=== PATIENT | female | born 1970 | race African-American/Black ===

== ENCOUNTER 2017-02-21 16:40 | Emergency (ER) | payer MEDICARE, MEDICAID ==
[~2017-02-21] VITALS: Ht 175.3 cm; Wt 165.6 kg
[~2017-02-21 16:40] MED LIST: ALBUAER3 IN; ALPR0.5T PO; ASPI-231 PO; CARI-277 PO; FURO20TA PO; GLIP-115 PO; LEVA1NEB5 IN; POT20T PO
[2017-02-21 18:04] LABS: Basophils # (auto) 0 uL; Basophils % (auto) 0.5 % (0.0-2.0); DEFINITIVE VIEW TRANSMISSION; Eosinophils # (auto) 0.1 uL; Eosinophils % (auto) 1.5 % (0.0-7.0); Hematocrit 41.2 % (36.0-46.0); Hemoglobin 13.3 g/dL (12.2-16.2); Lymphocytes # (auto) 2.6 uL; Lymphocytes % (auto) 29.9 % (10.0-50.0); Mean Corpuscular Hemoglobin 24.8 pg (28.0-32.0); Mean Corpuscular Hgb Conc. 32.4 g/dL (32.0-36.0); Mean Corpuscular Volume 76.4 fL (80.0-100.0); Mean Platelet Volume 9.3 fL (7.4-10.4); Monocytes # (auto) 0.7 uL; Monocytes % (auto) 8.4 % (0.0-12.0); Neutrophils # (auto) 5.2 uL; Neutrophils % (auto) 59.7 % (37.0-80.0); Platelet Count (auto) 369 10^3/uL (140-450); White Blood Cell 8.8 10^3/uL (4.4-10.8)
[2017-02-21 18:12] LABS: Albumin 3.2 g/dL (3.4-5.0); Alkaline Phosphatase 77 U/L (45-117); Anion Gap 7 (5-15); Aspartate Aminotransferase 19 U/L (15-37); BUN/Creatinine Ratio 20.5; Bilirubin, Total 0.5 mg/dL (0.2-1.0); Blood Urea Nitrogen 15 mg/dL (7-18); Calcium 7.9 mg/dL (8.5-10.1); Carbon Dioxide 27 mmol/L (21-32); Chloride 104 mmol/L (98-107); GFR African American 111 mL/min; GFR Non-African American 92 mL/min; Glucose 243 mg/dL (74-106); Magnesium 2.1 mg/dL (1.6-2.6); Potassium 3.6 mmol/L (3.5-5.1); Sodium 138 mmol/L (136-145); Total Protein 7.4 g/dL (6.4-8.2)
[2017-02-22 02:08] LABS: INR 1.03 (0.9-1.15); Partial Thromboplastin Time 26.6 sec (22.64-33.71); Prothrombin Time 11.2 sec (9.37-12.3)
[2017-02-22 02:17] VITALS: BP 126/55
[2017-02-22 02:24] LABS: B-Type Natriuretic Peptide < 5.0 pg/mL (0-100); Temperature: 21.8 C (20.0-25.0)
== END 2017-02-22 04:18 | disposition home or self-care (01) ==
LOC: ER 16:40 → EDBD 16:40 → ER 02-22 04:00
DX: R00.2 Palpitations (principal); E11.9 Type 2 diabetes mellitus without complications; I11.0 Hypertensive heart disease with heart failure; I50.9 Heart failure, unspecified; E66.01 Morbid (severe) obesity due to excess calories; Z68.43 Body mass index [BMI] 50.0-59.9, adult; J45.909 Unspecified asthma, uncomplicated; J44.9 Chronic obstructive pulmonary disease, unspecified; E78.5 Hyperlipidemia, unspecified; F17.210 Nicotine dependence, cigarettes, uncomplicated; E83.51 Hypocalcemia; Z88.6 Allergy status to analgesic agent; Z88.8 Allergy status to other drugs, medicaments and biological substances; Z79.82 Long term (current) use of aspirin; Z79.899 Other long term (current) drug therapy
CPT/HCPCS: 36415; 71010; 71020; 80053; 82962; 83735; 83880; 84443; 84484; 85025; 85379; 85610; 85730; 93005

== ENCOUNTER 2019-06-17 23:37 | Emergency (ER) | payer MEDICARE, OTHER ==
[~2019-06-17] VITALS: Ht 177.8 cm; Wt 167.8 kg
[~2019-06-17 23:37] MED LIST changes: +FURO1TAB33 PO; -FURO20TA PO; -GLIP-115 PO; +GLIP5TAB12 PO
[2019-06-18 00:51] LABS: Basophils # (auto) 0.1 uL; Basophils % (auto) 0.9 % (0.0-2.0); Eosinophils # (auto) 0.2 uL; Eosinophils % (auto) 3.1 % (0.0-7.0); Hemoglobin 13.3 g/dL (12.2-16.2); Lymphocytes % (auto) 39.7 % (10.0-50.0); Mean Corpuscular Hemoglobin 25.1 pg (28.0-32.0); Mean Corpuscular Hgb Conc. 32.3 g/dL (32.0-36.0); Mean Corpuscular Volume 77.7 fL (80.0-100.0); Monocytes # (auto) 0.7 uL; Monocytes % (auto) 9.4 % (0.0-12.0); Neutrophils # (auto) 3.6 uL; Neutrophils % (auto) 46.9 % (37.0-80.0); Nucleated Red Blood Cells % 0.1 %; Platelet Count (auto) 293 10^3/uL (140-450); Red Blood Cells 5.27 10^6/uL (4.0-5.20); Red Cell Distribution Width 17.4 % (11.8-14.3); White Blood Cell 7.6 10^3/uL (4.4-10.8)
[2019-06-18 01:05] LABS: Albumin 3.5 g/dL (3.4-5.0); Anion Gap 5 (5-15); Blood Urea Nitrogen 18 mg/dL (7-18); Calcium 8.9 mg/dL (8.5-10.1); Carbon Dioxide 27 mmol/L (21-32); Chloride 106 mmol/L (98-107); Glucose 141 mg/dL (74-106); Magnesium 2.2 mg/dL (1.6-2.6); Potassium 3.9 mmol/L (3.5-5.1); Sodium 138 mmol/L (136-145)
[2019-06-18 01:06] LABS: INR 1.01 (0.9-1.15); Partial Thromboplastin Time 29.6 sec (23.64-32.05)
[2019-06-18 01:07] LABS: Alanine Aminotransferase 20 U/L (13-56); Aspartate Aminotransferase 20 U/L (15-37); BUN/Creatinine Ratio 26.1; GFR African American 117 mL/min; GFR Non-African American 97 mL/min
[2019-06-18 01:13] LABS: Urine Bacteria FEW /hpf (None Seen); Urine Blood Negative /uL (Negative); Urine Mucus FEW (None Seen); Urine Specific Gravity 1.031 (1.001-1.035); Urine WBC 9 /hpf (0 - 5)
[2019-06-18 01:18] LABS: Alkaline Phosphatase 60 U/L (45-117); Bilirubin, Total 0.4 mg/dL (0.2-1.0); Total Protein 7.6 g/dL (6.4-8.2)
[2019-06-18] MEDS ORDERED: IPRATROPIUM BROM 0.5 MG/2.5ML INH SOL NEB ONE (03:30)
[2019-06-18] MEDS ORDERED: methylPREDNISolone SOD SUCC 125 MG/2 ML VL IV ONE (03:30)
[2019-06-18] MEDS ORDERED: ALBUTEROL SULF 2.5 MG/0.5ML(0.5%) NEB SOLN NEB ONE (03:30)
[2019-06-18] MEDS ORDERED: SODIUM CHLORIDE 0.9% 1,000 ML IV ONE (03:30)
[2019-06-18 05:04] VITALS: BP 106/37
== END 2019-06-18 05:55 | disposition home or self-care (01) ==
LOC: EDBD 23:37 → ER 23:43
DX: J44.9 Chronic obstructive pulmonary disease, unspecified (principal); I11.0 Hypertensive heart disease with heart failure; I50.9 Heart failure, unspecified; E78.5 Hyperlipidemia, unspecified; E11.9 Type 2 diabetes mellitus without complications; F17.210 Nicotine dependence, cigarettes, uncomplicated
CPT/HCPCS: 36415; 80053; 81001; 83735; 83880; 84484; 84702; 85025; 85610; 85730; 93005; 96374; 99284; J2930; J7030; J7611; J7644

== ENCOUNTER 2019-07-08 04:47 | Inpatient (IN) | payer MEDICARE, OTHER ==
[~2019-07-08] VITALS: Ht 175.3 cm; Wt 157.2 kg
[2019-07-08 05:52] LABS: Basophils # (auto) 0.1 uL; Basophils % (auto) 0.8 % (0.0-2.0); Eosinophils # (auto) 0.3 uL; Eosinophils % (auto) 4.2 % (0.0-7.0); Hematocrit 40.3 % (36.0-46.0); Lymphocytes # (auto) 2.3 uL; Mean Corpuscular Hemoglobin 25.4 pg (28.0-32.0); Mean Corpuscular Hgb Conc. 32.2 g/dL (32.0-36.0); Mean Corpuscular Volume 78.8 fL (80.0-100.0); Monocytes # (auto) 0.6 uL; Monocytes % (auto) 7.6 % (0.0-12.0); Neutrophils # (auto) 4.9 uL; Neutrophils % (auto) 59.4 % (37.0-80.0); Platelet Count (auto) 259 10^3/uL (140-450); Red Blood Cells 5.12 10^6/uL (4.0-5.20); Red Cell Distribution Width 17.1 % (11.8-14.3); White Blood Cell 8.2 10^3/uL (4.4-10.8)
[2019-07-08] MEDS ORDERED: ALBUTEROL SULF 2.5 MG/0.5ML(0.5%) NEB SOLN NEB ONE (06:00)
[2019-07-08] MEDS ORDERED: IPRATROPIUM BROM 0.5 MG/2.5ML INH SOL NEB ONE (06:00)
[2019-07-08 06:10] LABS: Alanine Aminotransferase 21 U/L (13-56); Albumin 3.3 g/dL (3.4-5.0); Anion Gap 5 (5-15); Aspartate Aminotransferase 17 U/L (15-37); BUN/Creatinine Ratio 16.2; Blood Urea Nitrogen 11 mg/dL (7-18); Calcium 8.3 mg/dL (8.5-10.1); Carbon Dioxide 31 mmol/L (21-32); Chloride 105 mmol/L (98-107); GFR African American 119 mL/min; GFR Non-African American 98 mL/min; Glucose 176 mg/dL (74-106); Sodium 141 mmol/L (136-145)
[2019-07-08 06:15] LABS: Alkaline Phosphatase 54 U/L (45-117); Bilirubin, Total 0.5 mg/dL (0.2-1.0); Total Protein 7.3 g/dL (6.4-8.2)
[2019-07-08] MEDS ORDERED: methylPREDNISolone SOD SUCC 125 MG/2 ML VL IV ONE (07:15)
[2019-07-08] MEDS ORDERED: DEXTROSE (50%) 50ML SYRG IV PRN (09:00)
[2019-07-08] MEDS ORDERED: MORPHINE SULF INJ 2 MG/ML SYRINGE 1ML IV PRN (09:00)
[2019-07-08 10:03] LABS: Cholesterol 175 mg/dL (< 200); Triglycerides 119 mg/dL (< 150)
[2019-07-08 10:05] LABS: HDL Cholesterol 30 mg/dL (40-59); LDL Cholesterol 140 mg/dL (< 100)
[2019-07-08] MEDS: PANTOPRAZOLE 40 MG TAB PO SCH (10:25)
[2019-07-08] MEDS: FUROSEMIDE 20 MG TAB PO SCH (10:25)
[2019-07-08] MEDS: BUDESONIDE (INHALATION) 0.5 MG/2 ML NEB NEB SCH ×2 (10:45→22:03)
[2019-07-08] MEDS: ALBUTEROL SULF 2.5 MG/0.5ML(0.5%) NEB SOLN NEB SCH ×4 (10:45→22:03)
[2019-07-08] MEDS: IPRATROPIUM BROM 0.5 MG/2.5ML INH SOL NEB SCH ×4 (10:45→22:03)
[2019-07-08] MEDS: ACCU-CHEK COMFORT CURVE STRIP VI SCH ×3 (11:30→22:00)
--- NOTE | 2019-07-08 12:20 | NUR ---
MS admit from ER [facility] RAND[facility]WA admitted to tele/MS. Patient oriented to UNIQUE MCCARTY RN primary RN, unit, room, bed, and unit policies regarding patient care and visiting hours. Patient weighed by bedscale and encouraged to call if they need something with call light within reach. Bed in low/locked position, be rails up x2. All questions and concerns addressed, patient verbalized understanding.
[2019-07-08 13:10] VITALS: BP 125/81
[2019-07-08] MEDS: methylPREDNISolone SOD SUCC 125 MG/2 ML VL IV SCH ×2 (15:16→22:32)
[2019-07-08] MEDS: InsuLIN REG 1unit/0.01ml Soln (100units/ml) SC SCH ×3 (15:17→22:00)
[2019-07-08 16:29] VITALS: BP 125/81
[2019-07-08 17:00] VITALS: BP 129/57
--- NOTE | 2019-07-08 19:15 | NUR ---
Opening Shift Note Assumed care of patient, awake and alert. No S/S of distress/SOB. Patient reported Headache dull, nonradiating, 04/03. Instructed on POC and to call for assist PRN, will continue to monitor for changes Q1hr and PRN. Will medicate per protocol. bed in low position and call light within reach
[2019-07-08 20:00] VITALS: BP 123/63
--- NOTE | 2019-07-08 20:05 | NUR ---
RECEIVED CALL BACK FROM HOSPITALIST. INFORMED HOSPITALIST PATIENT HAS 7/10 HEADACHE PAIN THAT BEGAN AN HOUR AGO, PAIN IS DULL, NONRADIATING. PATIENT IS REQUESTING TYLENOL. NEW ORDERS RECEIVED TYLENOL PO 500MG Q 6HRS/PRN FOR MILD PAIN. ULTRAM 50MG Q 6HRS /PRN FOR MODERATE PAIN. NEW ORDER FOR CPAP INITIATION, PER MD" RT IS TO ADJUST SETTINGS'
[2019-07-08] MEDS ORDERED: traMADol HCL 50 MG TAB PO PRN (21:15)
[2019-07-08 22:00] VITALS: BP 123/63
--- NOTE | 2019-07-08 22:03 | NUR ---
Respiratory note: PT SEEN FOR CPAP ORDER. PT STATED THAT SHE HAS ONE AT HOME BUT SHE DOESN'T HAVE A CERTAIN CONNECTION TO USE 02 WITH IT AND DOES NOT WEAR IT. SHE ALSO STATED SHE HAS WORN IT A FEW TIMES IN PAST HOSPITAL VISITS AND SHE DID NOT LIKE HOW IT FELT. PT SAID SHE DID NOT WANT TO TRY IT TONIGHT BECAUSE SHE FEELS LIKE SHE MIGHT NOT GET ANY SLEEP WITH IT ON. SHE SAID THAT SHE MIGHT TRY IT THE NEXT NIGHT. CPAP TAKEN OUT OF THE ROOM AT THIS TIME. WILL FOLLOW UP WITH DAY SHIFT RT.
[2019-07-08] MEDS: ACETAMINOPHEN 500 MG TAB PO PRN (22:35)
--- NOTE | 2019-07-09 02:00 | NUR ---
IV insertion IV access obtained, via clean sterile technique by inserting 22 gauge catheter at left ac after 1 attempt. IV secured properly. No trauma to site. Patient tolerated well.
--- NOTE | 2019-07-09 02:00 | NUR ---
IV removal [employer] Technician called that patient removed IV. Upon arrival to room patient IV was removed by patient per patient "it just fell out." area assessed no bleeding applied gauze. catheter intact.
[2019-07-09] MEDS: IPRATROPIUM BROM 0.5 MG/2.5ML INH SOL NEB SCH ×6 (02:11→22:47)
[2019-07-09] MEDS: ALBUTEROL SULF 2.5 MG/0.5ML(0.5%) NEB SOLN NEB SCH ×6 (02:11→22:47)
[2019-07-09] MEDS: methylPREDNISolone SOD SUCC 125 MG/2 ML VL IV SCH ×3 (05:31→21:40)
[2019-07-09 05:44] VITALS: BP 115/60
[2019-07-09] MEDS: glipiZIDE 5 MG TAB PO SCH (06:31)
[2019-07-09] MEDS: ACCU-CHEK COMFORT CURVE STRIP VI SCH ×4 (06:31→21:36)
[2019-07-09] MEDS: InsuLIN REG 1unit/0.01ml Soln (100units/ml) SC SCH ×4 (06:31→21:37)
[2019-07-09] MEDS: ACETAMINOPHEN 500 MG TAB PO PRN ×3 (06:36→20:38)
--- NOTE | 2019-07-09 07:23 | NUR ---
report given to naldo gibbons
--- NOTE | 2019-07-09 08:00 | NUR ---
Opening Shift Note Assumed care of patient. Patient is aroused to voice and orientated to person, place, time and is alert. No S/S of distress/SOB or pain. Instructed on plan of care and to call for assist PRN, will continue to monitor for changes Q1hr and PRN. Addendum: 07/09/19 at 1428 by YESENIA WINSTON RN RN IV Patient has left AC 22gauge peripheral IV saline locked.
[2019-07-09 09:00] VITALS: BP 125/65
[2019-07-09] MEDS: FUROSEMIDE 20 MG TAB PO SCH (09:38)
[2019-07-09] MEDS: PANTOPRAZOLE 40 MG TAB PO SCH (09:38)
[2019-07-09] MEDS ORDERED: POTASSIUM CHL 20 Meq TABLET PO ONE (10:45)
[2019-07-09] MEDS: BUDESONIDE (INHALATION) 0.5 MG/2 ML NEB NEB SCH ×2 (11:08→22:47)
[2019-07-09 13:00] VITALS: BP 137/76
[2019-07-09 17:00] VITALS: BP 124/62
--- NOTE | 2019-07-09 19:10 | NUR ---
Opening Shift Note Assumed care of patient, awake and alert. No S/S of distress/SOB or pain. Instructed on POC and to call for assist PRN, will continue to monitor for changes Q1hr and PRN.
[2019-07-09 20:00] VITALS: BP 113/65
[2019-07-09 22:00] VITALS: BP 113/65
[2019-07-09] MEDS ORDERED: ATORVASTATIN 20 MG TAB PO SCH (22:00)
--- NOTE | 2019-07-10 00:40 | NUR ---
per patient" I have a headache i think my blood sugar is high, can you check my blood sugar" Patient verbalized no other symptoms. Headache 7/, pressure, and nonradiating that began an hour ago. Educated patient on side effects of hypergylcemia. patient verbalized understanding and request blood sugar to be checked. BS 222. will medicate per MD orders.
[2019-07-10] MEDS: ACETAMINOPHEN 500 MG TAB PO PRN (03:01)
[2019-07-10] MEDS: IPRATROPIUM BROM 0.5 MG/2.5ML INH SOL NEB SCH ×3 (03:32→09:58)
[2019-07-10] MEDS: ALBUTEROL SULF 2.5 MG/0.5ML(0.5%) NEB SOLN NEB SCH ×3 (03:32→09:58)
[2019-07-10 05:00] VITALS: BP 117/40
[2019-07-10] MEDS: methylPREDNISolone SOD SUCC 125 MG/2 ML VL IV SCH (06:00)
[2019-07-10] MEDS: InsuLIN REG 1unit/0.01ml Soln (100units/ml) SC SCH ×2 (06:31→11:30)
[2019-07-10] MEDS: ACCU-CHEK COMFORT CURVE STRIP VI SCH ×2 (06:31→11:59)
[2019-07-10] MEDS: glipiZIDE 5 MG TAB PO SCH (06:31)
[2019-07-10] MEDS: BUDESONIDE (INHALATION) 0.5 MG/2 ML NEB NEB SCH (06:41)
--- NOTE | 2019-07-10 07:18 | NUR ---
Report given to naldo gibbons
[2019-07-10 09:00] VITALS: BP 126/65
[2019-07-10] MEDS: FUROSEMIDE 20 MG TAB PO SCH (09:31)
[2019-07-10] MEDS: PANTOPRAZOLE 40 MG TAB PO SCH (09:32)
[2019-07-10] MEDS ORDERED: POTASSIUM CHL 20 Meq TABLET PO SCH (10:00)
[2019-07-10 10:45] VITALS: BP 126/65
== END 2019-07-10 12:25 | disposition home or self-care (01) | DRG 189 ==
LOC: ER 04:47 → EDBD 04:47 → OVERFLOW 04:48 → CENTRAL 12:22
PROVIDERS: ADMIT Nurse Practitioner Acute Care; ATTEND Family Medicine
DX: J96.20 Acute and chronic respiratory failure, unspecified whether with hypoxia or hypercapnia (principal); I50.32 Chronic diastolic (congestive) heart failure; Z68.43 Body mass index [BMI] 50.0-59.9, adult; J44.1 Chronic obstructive pulmonary disease with (acute) exacerbation; J45.902 Unspecified asthma with status asthmaticus; J44.9 Chronic obstructive pulmonary disease, unspecified; E78.00 Pure hypercholesterolemia, unspecified; E66.01 Morbid (severe) obesity due to excess calories; F41.9 Anxiety disorder, unspecified; E11.9 Type 2 diabetes mellitus without complications; E78.5 Hyperlipidemia, unspecified; I11.0 Hypertensive heart disease with heart failure; F17.210 Nicotine dependence, cigarettes, uncomplicated; Z79.82 Long term (current) use of aspirin; Z79.84 Long term (current) use of oral hypoglycemic drugs; Z99.81 Dependence on supplemental oxygen; Z88.5 Allergy status to narcotic agent; Z88.8 Allergy status to other drugs, medicaments and biological substances; Z79.899 Other long term (current) drug therapy; Z82.49 Family history of ischemic heart disease and other diseases of the circulatory system; Z83.3 Family history of diabetes mellitus
CPT/HCPCS: 36415; 71045; 80053; 80061; 82962; 83036; 83880; 84443; 84484; 85025; 93005; 93306; 94640; G0378; J1815